=== PATIENT | male | born 1965 | race Caucasian/White ===

== ENCOUNTER → 2017-08-30 | Day surgery (SDC) | payer OTHER ==
[2017-08-21 13:07] VITALS: Ht 185.4 cm; Wt 168.6 kg
[~2017-08-30] VITALS: Ht 185.4 cm; Wt 168.6 kg
[~2017-08-30] MED LIST: ASCO500T3 PO; B-COTAB18 PO; ENTI300 IV; KETAMINE HCL INJ 50 MG/ML 10 ML VIAL ONE; LIDOCAINE HCL 2% 2 ML VIAL (20MG/ML) ONE; LISI-788 PO; MAGN250T3 PO; MULT-506 PO; OMEGCAP2 PO; OYST500T47 PO; PROPOFOL IV EMULSION 10 MG/ML 20 ML VIAL IV ONE; RANI150T85 PO; SODIUM CHLORIDE 0.9% 500ML 500 ML IV ONE
--- NOTE | 2017-08-30 08:28 | Endo History and Physical ---
History & Physical Date of Service: Aug 30, 2017. Chief Complaint: Crohns Referring Physician: Dr. Kendall Garland History of Present Illness Fistulizing Crohn's disease, Hx melanoma Past Surgical History Hx Cardiac Surgery: No Hx Internal Defibrillator: No Hx Pacemaker: No Hx Abdominal Surgery: No Hx of Implantable Prosthesis: No Hx Post-Op Nausea and Vomiting: No Hx Cancer Surgery: Yes (MELANOMA REMOVAL AND LYMPHNODE REMOVAL UNDER ARM) Hx Thoracic Surgery: No Hx Orthopedic: No Hx Urinary Tract Surgery: No Family History IBD Social History Smoking Status: Never Smoker Hx Substance Use: No Hx Alcohol Use: Yes (RARELY) Allergies Coded Allergies: No Known Allergies (Verified , 08/21/17) Current Medications Reported Home Medications Medications Dose Route/Sig Max Daily Dose Days Date Category Entyvio (Vedolizumab) Unknown Strength Inj Unknown Dose IV [id number] 08/21/17 Reported Magnesium 250 mg (Magnesium) 1 Tab Tab 1 Tab PO DAILY 08/21/17 Reported Multivitamin (Multivitamins) Tab 1 Tab PO DAILY 08/21/17 Reported Vitamin B Complex (B-Complex Vitamins) 1 Tab Tab 1 Tab PO DAILY 08/21/17 Reported Vitamin C (Ascorbic Acid) 500 Mg Tab 2 Tab PO DAILY 08/21/17 Reported Calcium (Oyster Shell) 500 Mg Tab 1 Tab PO DAILY 08/21/17 Reported Fish Oil (Warrens-3 Fatty Acids) 1 Cap Cap 4 Cap PO DAILY 08/21/17 Reported Zantac (Ranitidine HCl) 150 Mg Tab 150 Mg PO BID 08/21/17 Reported Zestoretic 20MG/25MG (HCTZ/Lisinopril) Tab 1 Tab PO QAM 08/21/17 Reported Vital Signs Weight (Kilograms): 168.64 Height (Feet): 6 Height (Inches): 1 Date Time Temp Pulse Resp B/P (MAP) Pulse Ox O2 Delivery O2 Flow Rate FiO2 08/30/17 07:58 36.5 78 18 145/87 (106) 95 Room Air Physical Exam General Appearance: WD/WN, no apparent distress, + obese Respiratory/Chest: Auscultation: breath sounds normal, no wheezing Cardiovascular: Heart Auscultation: RRR Abdomen: Inspection & Palpation: soft, no tenderness, guarding & rebound Assessment and Plan Colonoscopy.
--- NOTE | 2017-08-30 09:10 | GI REPORT ---
Procedure Date: 08/30/2017 8:32 AM Procedure: Colonoscopy Indications: High risk colon cancer surveillance: Crohn's disease large intestine Patient Profile: This is a 51 year old male with fistulizing Crohn's colitis since 2000, treated with infliximab until the development of melanoma in 2016; switched to vedolizumab. Medicines: Propofol per Anesthesia Complications: No immediate complications. Estimated blood loss: None. Estimated Blood Loss: Estimated blood loss: none. Procedure: Pre-Anesthesia Assessment: - Prior to the procedure, a History and Physical was performed, and patient medications, allergies and sensitivities were reviewed. The patient's tolerance of previous anesthesia was reviewed. - ASA Grade Assessment: III - A patient with severe systemic disease. After I obtained informed consent, the scope was passed under direct vision. Throughout the procedure, the patient's blood pressure, pulse, and oxygen saturations were monitored continuously. The Scope was introduced through the anus and advanced to the terminal ileum, with identification of the appendiceal orifice and IC valve. The colonoscopy was performed without difficulty. The patient tolerated the procedure well. The quality of the bowel preparation was excellent. The bowel preparation used was split dose MIralax. Findings: Normal mucosa was found in the entire colon. Two biopsies were taken every 10 cm with a cold forceps from the right colon and left colon for Crohn's disease surveillance. These biopsy specimens from the right colon and left colon were sent to Pathology. Multiple diverticula were found in the left colon. Verification of patient identification for the specimen was done by the physician and nurse using the patient's name, date and medical record number. Impression: - Normal mucosa in the entire examined colon. Biopsied. - Diverticulosis in the left colon. - The colon was otherwise normal to the terminal ileum with retroflexed views of the ascending colon and rectum. Recommendation: - Repeat colonoscopy in 2 years for surveillance based on pathology results. Donte Angel M.D. Donte Angel MD 08/30/2017 9:09:43 AM This report has been signed electronically. Note Initiated On: 08/30/2017 8:32 AM I attest to the content of the Intraoperative Record and orders documented therein, exceptions below
--- NOTE | 2017-08-30 09:11 | Discharge Instructions ---
Endoscopy Patient Instructions Date / Procedure(s) Performed Aug 30, 2017. Colonoscopy Allergy Information Coded Allergies: No Known Allergies (Verified , 08/21/17) Discharge Date / Findings Aug 30, 2017. Quiescent Crohn's colitis; diverticulosis Medication Instructions Stopped Medication(s): Patient was told to take only his ranitidine this am. Restart Stopped Medication(s): Restart all medications today Provider Instructions Activity Restrictions - No exercising or heavy lifting for 24 hours. - Do not drink alcohol the day of the procedure. - Do not drive a car or operate machinery until the day after the procedure. - Do not make any important decisions or sign important papers in 24 hours after the procedure. Following Day: - Return to full activity which may include returning to work/school. Diet Start your diet with liquids and light foods (jello, soup, juice, toast). Then eat your usual diet if not nauseated. Treatment For Common After Affects For mild abdominal pain, bloating, or excessive gas: - Rest - Eat lightly - Lie on right side Follow-Up Information Follow-up with Dr. Kendall Garland as scheduled Anesthesia Information What You Should Know You have had a procedure that required some medicine to reduce anxiety and discomfort. This treatment is called moderate sedation. After receiving the treatment, you may be sleepy, but you will be able to breathe on your own. The effects of the treatment may last for several hours. Follow these instructions along with Activity/Diet recommendations noted above: * Do NOT do anything where dizziness or clumsiness would be dangerous. * Rest quietly at home today, then you can be up and about tomorrow. * Have a responsible person stay with you the rest of today. * You may have had an I.V. today. If so, you may take the dressing off later today. Recommendations Call your doctor if: * Trouble breathing * Continuous vomiting for more than 24 hours * Temperature above 101 degrees * Severe abdominal pain or bloating * Pain not relieved by pain medicine ordered * There is increased drainage or redness from any incision * A large amount of rectal bleeding greater than 2-3 tablespoons. (If you had a polyp/s removed or have hemorrhoids, a small amount of blood - from the rectum is to be expected.) * You have any unanswered questions or concerns. IN THE EVENT OF A SERIOUS EMERGENCY, GO TO THE NEAREST EMERGENCY ROOM Your discharge instructions were prepared by provider Donte Angel. Patient Instructions Signature Page Peterson Patricia Patient (or Guardian) Signature/Date: I have read and understand the instructions given to me by my caregivers. Caregiver/RN/Doctor Signature/Date: The above-named patient and/or guardian has received patient instructions on this date. + Original Patient Signature Page (only) stays with chart. Please make copy for patient.
[2017-08-30 09:26] VITALS: BP 150/88; PULSE 94; O2SAT 95
--- NOTE | 2017-08-30 09:33 | Anesthesiology Progress Note ---
Anesthesia Post Op Note Date & Time Aug 30, 2017 at 09:33 Vital Signs Pain Intensity: 0 Vital Signs Past 12 Hours Date Time Temp Pulse Resp B/P (MAP) Pulse Ox O2 Delivery O2 Flow Rate FiO2 08/30/17 09:16 81 18 162/81 (108) 94 Room Air 08/30/17 09:06 94 18 140/76 (97) 96 Room Air 08/30/17 07:58 36.5 78 18 145/87 (106) 95 Room Air Notes Mental Status: alert / awake / arousable, participated in evaluation Pt Amnestic to Procedure: Yes Nausea / Vomiting: adequately controlled Pain: adequately controlled Airway Patency, RR, SpO2: stable & adequate BP & HR: stable & adequate Hydration State: stable & adequate Anesthetic Complications: no major complications apparent
== END | disposition home or self-care (01) ==
LOC: C.GI 07:34
PROVIDERS: ATTEND Internal Medicine Gastroenterology
DX: Z12.11 Encounter for screening for malignant neoplasm of colon (principal); K57.90 Diverticulosis of intestine, part unspecified, without perforation or abscess without bleeding; K50.90 Crohn's disease, unspecified, without complications; I10 Essential (primary) hypertension; E66.9 Obesity, unspecified; G47.33 Obstructive sleep apnea (adult) (pediatric); Z68.42 Body mass index [BMI] 45.0-49.9, adult; Z85.820 Personal history of malignant melanoma of skin